=== PATIENT | female | born 1990 ===

== ENCOUNTER 2017-06-05 14:25 | Outpatient (CLI) | payer SELFPAY ==
[2017-06-05] MEDS ORDERED: PRENTAB26 PO (16:16)
== END 2017-06-05 16:10 | disposition home or self-care (01) ==
LOC: EDBD → C.OPB 14:25 → C.LD 14:25 → C.OPB 16:10
PROVIDERS: ATTEND Obstetrics & Gynecology
DX: O99.89 Other specified diseases and conditions complicating pregnancy, childbirth and the puerperium (principal); M54.9 Dorsalgia, unspecified; Z3A.00 Weeks of gestation of pregnancy not specified

== ENCOUNTER 2017-07-24 16:13 | Inpatient (IN) | payer SELFPAY ==
[~2017-07-24] VITALS: Ht 162.6 cm; Wt 79.5 kg
[~2017-07-24 16:13] MED LIST: PRENTAB26 PO
[2017-07-24 17:29] LABS: HEMATOCRIT 35.6 % (37-47); MEAN CELL VOLUME 77.9 fL (80-100); MEAN CORPUSCULAR HEMOGLOBIN 26.9 pg (25-34); MEAN CORPUSCULAR HGB CONC 34.6 g/dl (32-36); MEAN PLATELET VOLUME 10.9 fL (7.4-10.4); PLATELET COUNT 216 K/uL (130-400); RED BLOOD COUNT 4.57 M/uL (4.2-5.4); WHITE BLOOD COUNT 8.78 K/uL (4.8-10.8)
[2017-07-24 18:46] VITALS: Ht 162.6 cm; Wt 79.5 kg
[2017-07-24] MEDS: BUTORPHANOL TARTRATE 1 MG/ML VIAL IV PRN ×2 (20:33→22:23)
[2017-07-24] MEDS ORDERED: LACTATED RINGER'S 1000ML 1,000 ML IV PRN (21:50)
[2017-07-24] MEDS: LACTATED RINGER'S 1000ML 1,000 ML IV SCH (22:24)
[2017-07-24] MEDS ORDERED: EpHEDrine SULFATE INJ 50 MG/ML AMP ONE (22:48)
[2017-07-24] MEDS ORDERED: FENTANYL 2MCG/ML ROPIV 1.25MG/ML 100ML BAG EPI ONE (22:48)
[2017-07-24] MEDS ORDERED: FENTANYL CITRATE INJ 50 MCG/1 ML 2 ML VIAL ONE (22:48)
[2017-07-24] MEDS ORDERED: BUPIVACAINE 0.25% 30 ML VIAL ONE (22:48)
[2017-07-25] MEDS ORDERED: NALOXONE HCL INJ 1 MG in SODIUM CHLORIDE 0.9% 1000ML 1,000 ML IV PRN (00:09)
[2017-07-25] MEDS ORDERED: LACTATED RINGER'S 1000ML 500 ML IV PRN ×2 (00:09→01:27)
[2017-07-25] MEDS ORDERED: ONDANSETRON INJ 2 MG/ML 2 ML VIAL IV PRN (00:15)
[2017-07-25] MEDS ORDERED: EpHEDrine SULFATE INJ 50 MG/ML AMP IV PRN (00:15)
[2017-07-25] MEDS ORDERED: PROMETHAZINE HCL INJ 6.25 MG in SODIUM CHLORIDE 0.9% 50ML 50 ML IV PRN (00:15)
[2017-07-25] MEDS ORDERED: DiphenhydrAMINE HCL 50 MG/ML VIAL IV PRN (00:15)
[2017-07-25] MEDS ORDERED: NALOXONE HCL INJ 0.4 MG/1 ML VIAL/CARP IV PRN (00:15)
[2017-07-25] MEDS ORDERED: NALBUPHINE HCL INJ 10 MG/ML AMP IV PRN (00:15)
[2017-07-25] MEDS ORDERED: OXYTOCIN 30 UNITS/500ML NSS IV PRN ×2 (01:30→19:45)
[2017-07-25] MEDS: FENTANYL 2MCG/ML ROPIV 1.25MG/ML 100ML BAG EPI PRN ×4 (02:21→14:36)
[2017-07-25] MEDS: LACTATED RINGER'S 1000ML 1,000 ML IV SCH ×2 (04:13→09:05)
[2017-07-25] MEDS ORDERED: HYDROCORTISONE ACETATE 25 MG SUPP PR PRN (19:45)
[2017-07-25] MEDS ORDERED: SUPERCREAM 0.870 % 15GM JAR EXT PRN (19:45)
[2017-07-25] MEDS ORDERED: BENZOCAINE 20% AER SPR 82.5 GM CAN EXT PRN (19:45)
[2017-07-25] MEDS ORDERED: LANOLIN OINT EXT PRN ×2 (19:45)
[2017-07-25] MEDS ORDERED: OXYCODONE/ACETAMINOPHEN 5-325 TAB PO PRN (19:45)
--- NOTE | 2017-07-25 19:58 | Anesthesia Procedure Note ---
Anesthesia Epidural Removal Nt Date & Time Jul 25, 2017 at 19:58 Vital Signs Pain Intensity: 0.0 Notes Mental Status: alert / awake / arousable, participated in evaluation Nausea / Vomiting: adequately controlled Pain: adequately controlled Airway Patency, RR, SpO2: stable & adequate BP & HR: stable & adequate Hydration State: stable & adequate Neuraxial Anesthesia: was administered Anesthetic Complications: no major complications apparent, pt satisfied with anesthetic care Epidural: removed without complications, with tip intact
--- NOTE | 2017-07-25 20:13 | DELIVERY SUMMARY ---
DATE OF OPERATION: 07/25/2017 DELIVERING SURGEON: Dr. Lexi Irwin. PREDELIVERY DIAGNOSES: 1. A 27-year-old G1, P0 at 40 weeks. 2. Induction of labor secondary to biophysical profile 2/8. 3. Late care due to travel from [employer] [employer] and being unable to return to home country because of . POSTDELIVERY DIAGNOSES: 1. A 27-year-old G1, P0 at 40 weeks. 2. Induction of labor secondary to biophysical profile 2/8. 3. Late care due to travel from [employer] and being unable to return to home country because of . PROCEDURE: Spontaneous vaginal delivery and repair of partial third-degree perineal laceration. ESTIMATED BLOOD LOSS: 300 mL. FINDINGS: Viable female , Apgars 8 and 9, weight pending. Please see nursery record. DESCRIPTION OF DELIVERY: The patient was induced with Martin balloon and then Pitocin, she progressed to complete with epidural anesthesia. She then began to push. She spontaneously vaginally delivered a viable female from the left occiput anterior position. The head delivered followed by the anterior and followed by the posterior shoulder, followed by the body. The baby was put on the mother's abdomen and spontaneous cry was heard. The cord was doubly clamped and cut. The segment was retained for cord gases. Cord blood was obtained. Placenta then delivered spontaneously intact with 3-vessel cord. The uterus and vagina were swept off all clot and debris. The cervix, vagina and perineum were inspected and a partial third-degree perineal laceration was noted. The anal sphincter muscle was intact; however, there was a small laceration in to the muscle sheath. Therefore, this was repaired with a [id number] suture of 2-0 chromic. This was followed by standard repair of the second-degree perineal laceration with 3-0 Vicryl in a running stitch. Excellent hemostasis was observed. The patient had been given Pitocin following delivery of the placenta. Mother and baby tolerated the delivery well and recovered in the stable and good condition in the room. Sponge, instrument and needle counts were correct at the conclusion of the delivery x2. I attest to the content of the Intraoperative Record and any orders documented therein. Any exceptions are noted below. JAVON
[2017-07-25] MEDS: IBUPROFEN 600 MG TAB PO PRN (20:46)
[2017-07-25] MEDS: DOCUSATE SODIUM 100 MG CAP PO SCH (21:22)
[2017-07-25 21:45] VITALS: BP 99/61; PULSE 64; TEMP 36.7; O2SAT 99
[2017-07-25] MEDS ORDERED: LIDOCAINE HCL 2% JELLY 30 ML TUBE EXT ONE (21:51)
[2017-07-25 23:40] VITALS: BP 106/65; PULSE 61; TEMP 36.8; O2SAT 99
[2017-07-26 03:40] VITALS: BP 94/58; PULSE 63; TEMP 36.7; O2SAT 99
[2017-07-26 06:28] LABS: HEMATOCRIT 29.6 % (37-47)
--- NOTE | 2017-07-26 06:38 | Progress Note ---
Subjective Jul 26, 2017. Subjective conversation w/ patient, physical exam, chart review, lab review Ambulation: limited ambulation (not out of bed yet) Voiding: no voiding problems Passing Gas: Yes Diet Tolerance: Clear Liquids Lochia: Small Feeding Type: Bottle Feeding (but wants to start breast feeding today) Pain: Says feels some pain in low abdomen Comment: Found pt resting comfortably. Translation via in room. Says is sore in lower abdomen but otherwise no acute concerns. Review of Systems Constitutional: No fever, No chills Respiratory: No cough, No shortness of breath Cardiac: No chest pain Abdomen: No nausea, No vomiting, No diarrhea Female : No dysuria Objective Vital Signs Date Time Temp Pulse Resp B/P (MAP) Pulse Ox O2 Delivery O2 Flow Rate FiO2 07/26/17 03:40 36.7 63 18 94/58 (70) 99 Room Air 07/25/17 23:40 Room Air 07/25/17 23:40 36.8 61 18 106/65 (79) 99 Room Air 07/25/17 21:45 36.7 64 18 99/61 (74) 99 Room Air 07/25/17 21:45 Room Air Physical Exam General Appearance: WELL-APPEARING, WD/WN, NO APPARENT DISTRESS Respiratory/Chest: lungs clear, normal breath sounds, no respiratory distress Cardiovascular: regular rate, rhythm, no murmur Abdomen: normal bowel sounds, non tender, soft Fundus: Firm, Non-Tender, Relation to Umbilicus (approx one down) Extremities: normal range of motion, no calf tenderness, + pedal edema (trace bilaterally) Laboratory Results Last 24 Hours Test 07/26/17 06:11 Hemoglobin 10.2 g/dL Hematocrit 29.6 % Assessment and Plan Post- Day#: 1 Continue Routine Care: 27F s/p , now PPD #1. - Blood type B positive. GBS negative. Rubella immune. - Vital signs reviewed and stable. - Pain controlled with motrin and percocet. - Trace equal bilateral leg swelling and no tenderness on calf palpation. Encourage ambulation. - Encourage breast feeding. - Hemoglobin pre-delivery 12.3, post-delivery 10.2. Bleeding has improved. Continue to monitor clinically. - Continue routine post-vaginal delivery care. - Pt agreed with above plan, all current questions answered. Doron De Leon MD, PGY1 Software Test Analyst Physician Supervision Note: I was present with Dr. De Leon during the history and exam. I discussed the case with the resident and agree with the findings and plan as documented in the note. Any exceptions or clarifications are listed here: PPD#1 doing well. Routine care. Documented By: Lexi Irwin Resident Tracking Resident Involvement: Resident Care Provided Care Provided: OB Delivery (OB rounds)
[2017-07-26] MEDS: IBUPROFEN 600 MG TAB PO PRN ×4 (07:17→20:07)
[2017-07-26 08:59] VITALS: BP 98/64; PULSE 78; TEMP 36.6; O2SAT 99
[2017-07-26] MEDS: DOCUSATE SODIUM 100 MG CAP PO SCH ×2 (09:47→20:03)
[2017-07-26 11:30] VITALS: BP 98/65; PULSE 66; TEMP 36.9
[2017-07-26 16:00] VITALS: BP 98/61; PULSE 85; TEMP 36.8
[2017-07-26] MEDS ORDERED: BISACODYL 5 MG TABEC PO SCH (20:00)
[2017-07-26 23:25] VITALS: BP 108/71; PULSE 62; TEMP 36.8; O2SAT 99
[2017-07-27] MEDS: IBUPROFEN 600 MG TAB PO PRN ×3 (00:07→17:31)
--- NOTE | 2017-07-27 06:51 | Progress Note ---
Subjective Jul 27, 2017. Subjective conversation w/ patient, conversation w/ family, physical exam, chart review, lab review Ambulation: ambulating normally Voiding: no voiding problems Passing Gas: Yes Diet Tolerance: Regular Diet Lochia: Small Feeding Type: Breast Feeding Pain: Denies any current pain, says is feeling fine Comment: Found pt resting comfortably, denies any acute concerns. Review of Systems Constitutional: No fever, No chills Respiratory: No cough, No shortness of breath Cardiac: No chest pain, No edema Abdomen: No nausea, No vomiting, No diarrhea Female : No dysuria Objective Vital Signs Date Time Temp Pulse Resp B/P (MAP) Pulse Ox O2 Delivery O2 Flow Rate FiO2 07/26/17 23:25 36.8 62 16 108/71 (83) 99 Room Air 07/26/17 23:25 Room Air 07/26/17 16:00 Room Air 07/26/17 16:00 36.8 85 18 98/61 (73) Room Air 07/26/17 11:30 36.9 66 18 98/65 (76) Room Air 07/26/17 08:59 36.6 78 18 98/64 (75) 99 Room Air 07/26/17 08:35 Room Air Physical Exam General Appearance: WELL-APPEARING, WD/WN, NO APPARENT DISTRESS Respiratory/Chest: lungs clear, normal breath sounds, no respiratory distress Cardiovascular: regular rate, rhythm, no edema, no murmur Abdomen: normal bowel sounds, non tender, soft Fundus: Firm, Non-Tender, Relation to Umbilicus (approx one down) Extremities: normal range of motion, no pedal edema, no calf tenderness Assessment and Plan Post- Day#: 2 Continue Routine Care: 27F s/p , now PPD #2. helps with translation. - Blood type B positive. GBS negative. Rubella immune. - Vital signs reviewed and stable. - Pain controlled with motrin. - Minimal bilateral leg swelling and no tenderness on calf palpation. Encourage ambulation. - Encourage breast feeding. - Hemoglobin pre-delivery 12.3, post-delivery 10.2. Bleeding improving. Continue to monitor clinically. - Continue routine post-vaginal delivery care. Discharge precautions discussed with patient. - Pt agreed with above plan, all current questions answered. Doron De Leon MD, PGY1 Director Phone Physician Supervision Note: I interviewed and examined the patient. Discussed with Dr. De Leon and agree with findings and plan as documented in the note. Any exceptions or clarifications are listed here: [None] Documented By: Bibiana Kincaid Resident Tracking Resident Involvement: Resident Care Provided Care Provided: OB Delivery (OB rounds)
[2017-07-27] MEDS ORDERED: BISACODYL 10 MG SUPP PR PRN (07:00)
--- NOTE | 2017-07-27 07:39 | Discharge Instructions ---
Discharge Instructions Date of Service Jul 27, 2017. Admission Reason for Admission: Prolonged Monitering Discharge Discharge Diagnosis / Problem: Recovery from vaginal delivery Discharge Goals Goal(s): Routine recovery after delivery Medications Continue Dispensed Medications: supercream, dermaplast, tucks, lansinoh Activity Recommendations Activity Limitations: per Instructions/Follow-up section . Instructions / Follow-Up Instructions / Follow-Up ACTIVITY RECOMMENDATIONS: * Gradual return to full activity over the next 2-3 weeks. * No lifting - nothing heavier than baby over the next 2-3 weeks. * Do not engage in vigorous exercise, sexual activity or sports until cleared by your physician. * Do not drive or operate any motorized equipment until cleared by your physician. * You may shower/bathe daily. MEDICATIONS: For discomfort or pain, you may use Acetaminophen (Tylenol), Ibuprofen (Advil), or Naproxen (Aleve) following the package directions. For constipation you may use Colace following the package directions. BREAST CARE: If you are not breast feeding: * Wear a supportive bra 24 hours a day for one to two weeks. * Avoid stimulating your breasts and nipples as much as possible during the first few weeks after delivery. * When taking a shower, have the warm water hit your back, not breasts. * When your breasts feel full, apply ice packs. Usually three to four times a day helps ease the discomfort. * Take a mild pain medication (Tylenol / Motrin) when you are uncomfortable. If breast feeding: * Use breast milk to lubricate nipples. Lansinoh cream may be used for sore nipples. You do not need to remove cream prior to breast feeding. If using a different brand of cream, check the label for directions regarding removal of cream prior to nursing. * Wear a supportive bra. * If having problems with breasts or breast feeding, call a consultant rn or your health care provider. EPISIOTOMY CARE: After delivery, if you have an episiotomy (stitches), the following steps will ease discomfort and aid healing. * For the first 24 hours after delivery, place ice packs next to your episiotomy to help reduce swelling. * After the first 24 hour-period, sitz baths, either portable or in the tub, are suggested. A shower with a shower arm sprayed over the episiotomy may be comforting. * Lindsay care should be done after each voiding and bowel movement. Squirt warm water from a plastic bottle over the perineum (region of the body between the anus and urinary opening) and pat dry. * Use Dermoplast to ease discomfort. Shake container. [place] directly over the episiotomy. Place a Tucks on a clean sanitary pad next to your episiotomy. SPECIAL CARE INSTRUCTIONS: When you are discharged from the hospital, it is important for you to follow the instructions listed below: * During the first week at home, you should be able to care for yourself and your baby. In addition, the usual light household activities are encouraged. * Limit your activities to the way you feel. Do not try to clean the house or move furniture. Be sensible. * If you actively engage in sports and have done so up until the time of your delivery, you may resume these activities as soon as you feel able. This may take up to one month or even longer. Use good judgment. * Continue to take your vitamins for at least six weeks after the of your baby. * Your diet need not be limited unless you were on a special diet before your delivery. Breast-feeding mothers need around 2500 calories per day and at least 64-80 ounces of fluid per day (8 to 10 glasses). * You should eat foods from the four major food groups. Crash diets or fad diets are to be avoided. Eating lean meats, fresh fruits and vegetables, low-fat dairy products, high fiber foods and a regular exercise program, will help you get back to your pre- weight without putting your health at risk. * Constipation is sometimes a problem after delivery. Take a mild laxative as needed. If breast feeding, Milk of Magnesia is acceptable to use. You may use a suppository or Fleets enema if no episiotomy. * A daily shower or tub bath is suggested. Be sure to thoroughly and gently dry the perineum. * A bloody vaginal discharge will usually continue until around four weeks post . A small amount of bleeding may continue for as long as six weeks. Vaginal discharge changes from the bright red bleeding after delivery to pink then brownish and finally yellowish-pink before becoming white and disappearing. * Bleeding may increase with activity. Your first period may come in 4-8 weeks. If you are breast feeding, your period may be delayed even longer. * Rifle (sex) can begin whenever both you and your partner feel comfortable and do not have any form of genital infection. It is recommended that you wait at least six weeks for internal and external healing to occur. If you have questions, please talk to your health care practitioner. A condom should be used to prevent infection and . * Foreplay, gentle intercourse and lubrication is very important the first several times to prevent pain. A water-based lubricant such as K-Y jelly or Astroglide may be used. * If you have RH negative blood and your baby is RH positive, you will receive RHOGAM by injection prior to discharge. The nurse will give you a card to keep with you that has the date and place that you received RHOGAM after delivery. * During your care, you had a Rubella screen done to check for the presence of rubella antibodies in your blood. If your test was negative, you will receive a Rubella vaccine prior to discharge. This vaccine may cause a fever, soreness at the injection site and flu-like symptoms. If these symptoms persist, notify your health care practitioner. is not advised for one month after a Rubella vaccine. * Verbalizes understanding of car seat law as reviewed with patient nursing. * Car Seat hand-out given and reviewed with patient by nursing. * Shaken baby information reviewed with patient by nursing. Call you doctor if: * Heavy bleeding (saturating several pads an hour) or passing clots the size of your fist. * A fever >101 degrees F (38.3 degrees C) on two occasions four hours apart and /or chills. * Unusual pain in the pelvic or vaginal areas. * "Baby Blues" lasting longer than two weeks. If you have any questions or concerns, call your health care practitioner at . FOLLOW UP VISIT: * Please call the office at to schedule a 6 week examination. It is important you keep this appointment. It is important for you to make arrangements for either yearly or twice yearly check-ups thereafter. Current Hospital Diet Patient's current hospital diet: Regular OB Diet Discharge Diet Recommended Diet: Regular OB Diet Pending Studies Studies pending at discharge: no Medical Emergencies . Who to Call and When: Medical Emergencies: If at any time you feel your situation is an emergency, please call 911 immediately. . Non-Emergent Contact Non-Emergency issues call your: Human Service Coordinator . . "Provider Documentation" section prepared by Doron De Leon. . VTE Core Measure Inpt VTE Proph given/why not?: Treatment not indicated
[2017-07-27] MEDS: DOCUSATE SODIUM 100 MG CAP PO SCH (08:07)
[2017-07-27 08:10] VITALS: BP 97/65; PULSE 75; TEMP 36.5
[2017-07-27 16:15] VITALS: BP 109/72; PULSE 76; TEMP 36.9
[2017-07-27 18:43] VITALS: BP_DIAS 72; PULSE 76; TEMP 36.9
== END 2017-07-27 19:06 | disposition home or self-care (01) | DRG 775 ==
LOC: C.OPB 16:13 → C.LD 16:13 → C.OPB 17:11 → C.LD 17:11 → C.OBG 07-25 22:12
PROVIDERS: ADMIT Obstetrics & Gynecology; ATTEND Obstetrics & Gynecology
PROC: 3E0P4GC Introduction of Other Therapeutic Substance into Female Reproductive, Percutaneous Endoscopic Approach (ICD-10-PCS; 2017-07-24)
PROC: 10H07YZ Insertion of Other Device into Products of Conception, Via Natural or Artificial Opening (ICD-10-PCS; 2017-07-24)
PROC: 3E033VJ Introduction of Other Hormone into Peripheral Vein, Percutaneous Approach (ICD-10-PCS; 2017-07-24)
PROC: 0DQR0ZZ Repair Anal Sphincter, Open Approach (ICD-10-PCS; principal; 2017-07-25)
PROC: 10E0XZZ Delivery of Products of Conception, External Approach (ICD-10-PCS; principal; 2017-07-25)
PROC: 0KQM0ZZ Repair Perineum Muscle, Open Approach (ICD-10-PCS; principal; 2017-07-25)
DX: O28.1 Abnormal biochemical finding on antenatal screening of mother (principal); O70.20 Third degree perineal laceration during delivery, unspecified; O48.0 Post-term pregnancy; O09.33 Supervision of pregnancy with insufficient antenatal care, third trimester; Z3A.40 40 weeks gestation of pregnancy; Z37.0 Single live birth